=== PATIENT | female | born 1955 | race Caucasian/White ===

== ENCOUNTER 2022-05-26 13:34 | Outpatient (CLI) | payer OTHER, SELFPAY | END 2022-05-26 13:35 | disposition home or self-care (01) | PROVIDERS: PCP Family Medicine; Visit Provider Emergency Medicine Emergency Medical Services | DX: S39.92XA Unspecified injury of lower back, initial encounter (principal); V80.010A Animal-rider injured by fall from or being thrown from horse in noncollision accident, initial encounter; Y92.9 Unspecified place or not applicable | CPT/HCPCS: A0425; A0433 ==

== ENCOUNTER 2022-05-26 14:10 | Emergency (ER) | payer OTHER, SELFPAY ==
[2022-05-26 14:10] VITALS: BP 162/87; PULSE 54; RESP 14; TEMP 36.7; O2SAT 99; BMI 29.1
--- NOTE | 2022-05-26 14:40 | CRLHL7_ITS ---
For Patients: As a result of the Cures Act, medical imaging exams and procedure reports are released immediately into your electronic medical record. You may view this report before your referring provider. If you have questions, please contact your health care provider. Indication: Fall from horse. Technique: CT of the cervical spine without IV contrast. Coronal and sagittal reconstructions. Comparison: None. Findings: No acute fracture or traumatic malalignment of the cervical spine. Vertebral body heights are well maintained. Normal vertebral body alignment. Degenerative changes of the right C2-C3 facet joint. Disc space narrowing at C4-C5, C5-C6, and C6-C7. No significant neural foraminal narrowing or spinal canal stenosis. No prevertebral soft tissue swelling. Visualized intracranial contents are unremarkable. The mastoid air cells are clear. The thyroid gland is normal in appearance. The lung apices are clear. Impression: 1. No acute fracture or traumatic malalignment of the cervical spine. 2. Mild spondylotic changes of the cervical spine. Please note that all CT scans at this facility use dose modulation, iterative reconstruction, and/or weight-based dosing when appropriate to reduce radiation dose to as low as reasonably achievable. Dictated by Jeana Khan MD @ 05/26/2022 5:16:32 PM (Electronically Signed)
--- NOTE | 2022-05-26 14:40 | CRLHL7_ITS ---
For Patients: As a result of the Century Cures Act, medical imaging exams and procedure reports are released immediately into your electronic medical record. You may view this report before your referring provider. If you have questions, please contact your health care provider. INDICATION: Trauma. Patient fell from a horse. TECHNIQUE: Contrast-enhanced CT of the chest abdomen and pelvis. 89 cc nonionic Isovue-370 administered. COMPARISON: Abdominopelvic CT January 05, 2022. FINDINGS: CT chest: Clear lungs. No pneumothoraces nodules or infiltrates. The trachea and mainstem bronchi are patent and clear. No pleural or pericardial effusions. Normal caliber thoracic aorta without aneurysm or dissection. Coronary artery calcification and/or coronary artery stents. The included thyroid gland and included breasts are within normal limits. CT of the abdomen and pelvis: Multiple intrahepatic cysts of varying size. No hepatic or splenic laceration. No splenomegaly. Accessory splenule left upper quadrant. Normal-appearing pancreas, gallbladder, and adrenal glands. The kidneys are negative for masses or obstruction. 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 Vascular calcification within a normal caliber abdominal aorta and iliac arteries. Normal inferior vena cava. The small large bowel are unremarkable. Normal appendix. No diverticular disease. Surgically absent uterus. The urinary bladder is unremarkable. No adnexal masses. No inguinal hernias. Nondisplaced acute fractures of the right transverse process of L3 and L4. No other fractures are confidently identified. IMPRESSION: 1. Nondisplaced fracture right transverse process L3 and L4. No other fractures are identified. 2. No acute cardiopulmonary or abdominal pelvic process identified. 3. Coronary artery calcification and/or coronary artery stent. 4. Nephrocalcinosis without hydronephrosis. Hepatic cysts. No solid organ laceration. Please note that all CT scans at this facility use dose modulation, iterative reconstruction, and/or weight-based dosing when appropriate to reduce radiation dose to as low as reasonably achievable. Dictated by Scot Cuevas MD @ 05/26/2022 5:25:50 PM (Electronically Signed)
--- NOTE | 2022-05-26 14:42 | ED_ITS ---
HPI - Fall General Chief Complaint: Fall/Minor Trauma Stated Complaint: Fall from horse Time Seen by Provider: 05/26/22 14:20 History of Present Illness HPI Narrative: This 66-year-old female fell from a horse prior to arrival. She came off backwards in knew she was going to land on her upper back. She had impact in the thoracic region and states that she lost her breath for brief time. She did not hit her head or have loss of consciousness. After a bit she was able to get up and ambulate with significant pain. She reports pain in the thoracic region and in the low back to the right of midline. She is not on any blood thinners. She does not report a headache or neck pain. Related Data Home Medications Medication Instructions Recorded Confirmed pramipexole 0.25 mg tablet 0.5 mg PO HS 05/26/22 05/26/22 (Mirapex) Previous Rx's Medication Instructions Recorded tizanidine 4 mg capsule (Zanaflex) 4 mg PO TID PRN muscle spasticity 05/26/22 #20 caps Allergies Allergy/AdvReac Type Severity Reaction Status Date / Time amoxicillin [From Augmentin] Allergy Unknown Rash Verified 05/26/22 14:23 clavulanic acid Allergy Unknown Rash Verified 05/26/22 14:23 [From Augmentin] Review of Systems Status of ROS: Reports: 10 or more systems reviewed and unremarkable except as noted in History and below Narrative: Constitutional: No fevers, no weight gain or loss. Eyes: No discharge. No vision changes. HENT: No congestion, no sore throat, no ear pain. Cardiovascular: No chest pain, no palpitations. Respiratory: No shortness of breath, no wheezes, no cough. She states that she lost her breath for a few seconds immediately after the fall. Gastrointestinal: No abdominal pain, no vomiting, no diarrhea. Genitourinary: No dysuria, no hematuria. Musculoskeletal: Normal range of motion. Midthoracic and low back pain as described above. Skin: No rashes, no pruritis. Neurological: No dizziness, weakness, sensory change, speech change. Endo/Heme/Allergies: No bruising or bleeding. No polydipsia. Pysch: no suicidality, no anxiety, no insomnia. All other systems reviewed and are negative. PFSH PFSH Social History Smoking Status: Never smoker How often do you have a drink containing alcohol: never AUDIT-C Alcohol total score: 0 Non-prescribed substance use: denies use Exam Narrative: Exam Narrative: Primary Survey: Vital Signs are within normal limits. Airway: Open. Breathing: Easy. Circulation: no obvious bleeding; normal capillary refill. Disability: GCS is 15. Normal pupillary response and motor movements. Secondary Survey: Head: Normocephalic Neck: No midline tenderness. ROM intact. Chest: Non tender. No external signs of trauma. Abdomen: Non tender. No rebound tenderness. Normal bowel sounds. Pelvis/Genitals: No tenderness to A/P and lateral stress. No blood at the urethral meatus. Extremities: Atraumatic. Back: No midline tenderness. Diffuse tenderness in the midthoracic region and in the low back to the right of midline. No tenderness when palpating along the spine from the neck down to the sacrum. Primary and Secondary surveys are completed. The patient's GCS is 15. Const: Vital Signs, click to edit/add: Vital Signs - 24 hr 05/26/22 14:10 05/26/22 16:44 05/26/22 17:02 Temperature 98.0 F Pulse Rate 55 L 55 L Pulse Rate [Pulse Oximeter] 54 L Respiratory Rate 14 Blood Pressure 142/84 H 124/70 Blood Pressure [Le ft Upper Arm] 162/87 H Pulse Oximetry 99 98 91 Oxygen Delivery Me thod Room Air Course Vital Signs Vital signs: Initial Vital Signs Temperature 98.0 F 05/26/22 14:10 Temperature Source Temporal Artery Scan 05/26/22 14:10 Pulse Rate 54 L 05/26/22 14:10 Pulse Rhythm 05/26/22 14:10 Respiratory Rate 14 05/26/22 14:10 Blood Pressure 162/87 H 05/26/22 14:10 Blood Pressure Mean 112 05/26/22 14:10 Blood Pressure Position Supine 05/26/22 14:10 Pulse Oximetry 99 05/26/22 14:10 Oxygen Delivery Method 05/26/22 14:10 Vital Signs Temperature 98.0 F 05/26/22 14:10 Pulse Rate 54 L 05/26/22 14:10 Respiratory Rate 14 05/26/22 14:10 Blood Pressure 162/87 H 05/26/22 14:10 Pulse Oximetry 99 05/26/22 14:10 Oxygen Delivery Method 05/26/22 14:10 Temperature 98.0 F 05/26/22 14:10 Pulse Rate 55 L 05/26/22 17:02 Respiratory Rate 14 05/26/22 14:10 Blood Pressure 124/70 05/26/22 17:02 Pulse Oximetry 91 05/26/22 17:02 Oxygen Delivery Method 05/26/22 14:10 MDM - Fall MDM Narrative Medical decision making narrative: This 66-year-old female fell from a horse onto her back and complains of tightness in her thoracic back and pain localized in the right lower back. An IV was established and CT imaging was acquired of the cervical spine along with chest, abdomen, and pelvis. There is no sign of internal organ injury or dam age. She does have nondisplaced fractures of L3 and L4 transverse processes. The patient received IV ketamine by ambulance personnel on route here and this brought sufficient pain relief initially. She was able to get up and ambulate to the bathroom but has increasing stiffness and soreness. Toward the end of her visit she received an IV dose of Dilaudid for additional pain relief. Prescriptions are provided for [place], Toradol, and Zanaflex. Lab Data Labs: Lab Results 05/26/22 05/26/22 Range/Units 14:51 14:51 WBC 5.99 (4.50-11.00) K/uL RBC 4.46 (4.00-5.20) m/uL Hgb 12.7 (12.0-16.0) gm/dL Hct 38.1 (33.0-51.0) % MCV 85 (80-100) fL MCH 29 (26-34) pg MCHC 33 (32-36) gm/dL RDW Coeff of [place]oxane 14.1 (11.5-15.5) % Plt Count 214 (140-440) K/uL Neut % (Auto) 74.6 H (42.0-72.0) % Lymph % (Auto) 17.4 L (20-44) % [place] % (Auto) 5.5 (0.0-11.0) % Eos % (Auto) 1.2 (0.0-7.0) % Baso % (Auto) 0.5 (0.0-3.0) % Neut # (Auto) 4.50 (1.7-7.0) K/uL Lymph # (Auto) 1.00 (0.90-2.90) K/uL [place] # (Auto) 0.30 (0.00-0.90) K/UL Eos # (Auto) 0.07 (0.00-0.50) K/uL Baso # (Auto) 0.03 (0.00-0.30) K/uL Abs Immat Gran (auto) 0.05 (0.00-0.30) K/uL Sodium 138 (135-149) mmol/L Potassium 3.8 (3.6-5.1) mmol/L Chloride 105 (96-114) mmol/L Carbon Dioxide 27 (20-32) mmol/L BUN 16 (7-30) mg/dL Creatinine 0.8 (0.5-1.5) mg/dL Estimated Creat Clear 53.21 Estimated GFR 82 ml/min Glucose 98 (60-115) mg/dL Calcium 9.1 (8.4-10.6) mg/dL Imaging Data CT scan - C Spine: Radiologist's impression: 1. No acute fracture or traumatic malalignment of the cervical spine. 2. Mild spondylotic changes of the cervical spine. CT Chest/Ab/Pelvis: Radiologist's impression: 1. Nondisplaced fracture right transverse process L3 and L4. No other fractures are identified. 2. No acute cardiopulmonary or abdominal pelvic process identified. 3. Coronary artery calcification and/or coronary artery stent. 4. Nephrocalcinosis without hydronephrosis. Hepatic cysts. No solid organ laceration. ECG Data Attestation: I personally reviewed and interpreted this ECG as follows: Interpretation: Sinus bradycardia, rate 50 beats per minute. There are no specific ST or T-wave abnormalities. Discharge Plan Discharge Clinical Impression: Fracture of transverse process of lumbar vertebra Patient Disposition: Home, Self-Care Condition: Unchanged Additional Instructions: Take medication as needed and indicated. Increase activity as tolerated. Follow up with MD or return if worsening. Prescriptions: New tizanidine [Zanaflex] 4 mg capsule 4 mg PO TID PRN (Reason: muscle spasticity) Qty: 20 0RF No Action pramipexole [Mirapex] 0.25 mg tablet 0.5 mg PO HS Label Comments: Takes 2 tabs at bedtime Follow Up/Referrals: Alta Carcamo MD [Primary Care Provider] - Stand Alone Forms: MyHealth Info Instructions
[2022-05-26 14:58] LABS: Basophils Absolute Auto 0.03 K/uL (0.00-0.30); Basophils Percent Auto 0.5 % (0.0-3.0); Eosinophils Absolute Auto 0.07 K/uL (0.00-0.50); Eosinophils Percent Auto 1.2 % (0.0-7.0); Hematocrit 38.1 % (33.0-51.0); Hemoglobin* 12.7 gm/dL (12.0-16.0); Immature Granulocytes Abs Auto 0.05 K/uL (0.00-0.30); Lymphocytes Percent Auto 17.4 % (20-44); Mean Corpuscular HGB Conc 33 gm/dL (32-36); Mean Corpuscular Hemoglobin 29 pg (26-34); Mean Corpuscular Volume 85 fL (80-100); Monocytes Percent Auto 5.5 % (0.0-11.0); Neutrophils Percent Auto 74.6 % (42.0-72.0); Platelet Count* 214 K/uL (140-440); RDW Coefficient of Variation % 14.1 % (11.5-15.5); Red Blood Count 4.46 m/uL (4.00-5.20); White Blood Count* 5.99 K/uL (4.50-11.00)
[2022-05-26 15:02] LABS: Slide Review Reflex No
[2022-05-26 15:11] LABS: Chloride* 105 mmol/L (96-114); Potassium* 3.8 mmol/L (3.6-5.1); Sodium* 138 mmol/L (135-149)
[2022-05-26 15:14] LABS: Blood Urea Nitrogen* 16 mg/dL (7-30); Carbon Dioxide* 27 mmol/L (20-32); Creatinine* 0.8 mg/dL (0.5-1.5); Est. Creatinine Clearance* 53.21; Estimated Glomerular Filt Rate 82 ml/min; Glucose* 98 mg/dL (60-115)
[2022-05-26 15:15] LABS: Calcium* 9.1 mg/dL (8.4-10.6)
[2022-05-26 16:44] VITALS: BP 142/84; PULSE 55; O2SAT 98
[2022-05-26 17:02] VITALS: BP 124/70; PULSE 55; O2SAT 91
[2022-05-26 17:32] VITALS: BP 122/78; PULSE 76; O2SAT 100
[2022-05-26] MEDS: HYDROmorphone 0.5 mg/0.5 ml inj IVP (18:02)
[2022-05-26] MEDS: ONDANSETRON ODT 4 MG TAB PO (18:36)
== END 2022-05-26 18:52 | disposition home or self-care (01) ==
PROVIDERS: Emergency Provider Emergency Medicine Emergency Medical Services; PCP Family Medicine
DX: S32.009A Unspecified fracture of unspecified lumbar vertebra, initial encounter for closed fracture (principal); V80.010A Animal-rider injured by fall from or being thrown from horse in noncollision accident, initial encounter
CPT/HCPCS: 36415; 71260; 72125; 74177; 80048; 85025; 93005; 96374; 99285; A9270; J1170; Q9967